=== PATIENT | female | born 1945 | race Caucasian/White ===

== ENCOUNTER → 2016-10-04 | Outpatient (CLI) | payer MEDICARE ==
[~2016-10-04] MED LIST: ADVAIR 100-501 EACH INH; ALFALFA250 MG PO; ARICEPT10 MG PO; ASCORBIC ACID500 MG PO; ASPIRIN (CHILDR81 MG PO; AUGMENTIN875 MG PO; B COMPLETE1 EACH PO; BENGAY/ICY HOT/30 GM TOP; CAPSAICIN42.5 GM TOP; CARAFATE1 GM PO; CEPACOL SORE T1 EAC1 PO; CHOLESTEROL REDUCTIO PO; COLACE100 MG PO; CORDARONE,PACE200 MG PO; COZAAR100 MG PO; DELTASONE5 MG PO; DULCOLAX10 MG R; ECOTRIN325 MG PO; FERGON325 M1 PO; FISH OIL 1,2001 EAC1 PO; GARLIC1 EAC1 PO; GLUCOPHAGE850 MG PO; IPRAT-ALBUT 0.5-3 ML INH; IRON 100-VITAM1 EACH PO; JOINT HEALTH T1 EACH PO; K-TAB ER20 MEQ PO; KEFLEX500 MG PO; LANTUS (IN100 UNIT/M SUB-Q; LEVAQUIN 750 M750 MG PO; LEVOTHROID(SY175 MCG PO; LIPITOR40 MG PO; LISINOPRIL-HCT1 EAC1 PO; LOPRESSOR25 MG PO; MAALOX LIQ UNIT30 ML PO; MILK OF MA400 MG/5 M PO; MIRAPEX0.25 MG PO; NAMENDA XR28 MG PO; NEURONTIN300 MG PO; NITROGLYCERIN0.4 MG SL; NORCO 5-325 MG1 TAB PO; NOVOLOG100 UNIT/M; NUTRIFERON PO; NYSTATIN1 EAC1 TOP; OSTEO MATRIX PO; PLAVIX75 MG PO; PROBIOTIC1 EAC1 PO; TOPROL XL25 MG PO; TYLENOL325 MG PO; ULTRAM50 MG PO; VENOFER100 MG/5 M IV; VITAMIN B-1000 MCG/M SUB-Q; VITAMIN D1000 UNIT PO; VITAMIN E400 UNI2 PO; VITAMIN K100 MCG PO; XARELTO15 MG PO; ZINC COMPLEX PO; ZYLOPRIM100 MG PO; [UNRECOGNIZED DRUG - OTHER] PO; [UNRECOGNIZED DRUG - REMARK] PO
== END | disposition disaster alternative care site (69) ==
LOC: GRAD 12:18
DX: R20.0 Anesthesia of skin (principal); I63.9 Cerebral infarction, unspecified

== ENCOUNTER → 2016-10-09 | Day surgery (SDC) | payer MEDICARE ==
[~2016-10-09] VITALS: Ht 167.6 cm; Wt 102.3 kg
--- NOTE | ~2016-10-09 | ECHO ---
Transesophageal Echocardiography Report ([facility]) Demographics Patient Name GRAEME DIAZ Date of Study 10/09/2016 Patient Number [id number] Visit Number [id number] Date of 1945 Room Number Gender Female Number Age 71 year(s) Referring Alecia Nicolas Teacher [employer] Liset Bullock Physician RDCS, RVT Physician Interpreting Alecia Nicolas Tax Attorney Physician MD Supervising Ordering Alecia Nicolas MD/MLP Physician MD Nurse Stress [employer] Fusion Developer Conclusions Summary Normal LV and RV size and systolic function. Moderate degenerative changes of the MV/AV. There is an echogenic mass attached to the anterior leaflet of the mitral valve, it is < 1 cm in size. Mild MR. Moderate to severe with severe calcific and degenerative changes. There is Grade 2 plaque seen in the ascending aorta . No mobile components noted. No JEANIE thrombus. Normal biatrial sizes. PV and TV are grossly normal. IAS is intact and there is no evidence of PFO or shunt by color/bubble study. Procedure Type of Study [facility] procedure:Color Doppler, Contrast study. 3D Imaging, live during the procedure [facility] Procedure Date Date: 10/09/2016 Start: 12:54 PM Study Location: Inpatient Portable Technical Quality: Adequate visualization Indications:CVA. Appropriate Use Criteria: 9 Patient Status: Routine Contrast Medium: Bubble Study. HR: 78 bpm BP: 173/72 mmHg O2 Saturation: 96 % [facility] Performed By: the attending and the crossing flagman Type of Anesthesia: Moderate sedation Allergies - Sulfa. M-Mode/2D Measurements AO Root Dimension: 2.14 cm LVOT: 2.05 cm Findings Aortic Valve Aortic valve area is 0.66 cm2 by 3D planimetry. Miscellaneous The patient was brought to the [facility] lab in the fasting state after informed consent was obtained in the written and verbal format. Bite block was placed by me. Once adequate anesthesia was obtained with anesthesia guidance with propofol sedation the [facility] probe was placed by me down into the stomach. It was pulled back slightly after a few views were obtained in the transgastric level to the transesophageal position where the majority of the case was carried out. At the end of the case the probe was rotated and withdrawn. Patient tolerated the procedure well. Contractility Score LV regional wall motion:(0-Non visualized 1-Normal 2-Hypokinesis 3-Akinesis 4-Dyskinesis 5-Aneurysm) Signature dtt: CHANEL MURO dtd: 10/09/16 1254 Physician Self Edit
== END | disposition disaster alternative care site (69) ==
LOC: GOPD 10-06
DX: I35.0 Nonrheumatic aortic (valve) stenosis (principal); I34.0 Nonrheumatic mitral (valve) insufficiency; I10 Essential (primary) hypertension; E11.9 Type 2 diabetes mellitus without complications; D64.9 Anemia, unspecified; R60.9 Edema, unspecified; Z87.891 Personal history of nicotine dependence; Z85.038 Personal history of other malignant neoplasm of large intestine; Z85.828 Personal history of other malignant neoplasm of skin; Z79.82 Long term (current) use of aspirin; Z79.899 Other long term (current) drug therapy; Z88.2 Allergy status to sulfonamides
CPT/HCPCS: J2001; J7030

== ENCOUNTER → 2016-11-16 | Outpatient (CLI) | payer MEDICARE ==
[2016-11-16 17:10] LABS: ALBUMIN 3.4 gm/dL (3.5-5.0); ANION GAP 13.2 (10.0-19.0); CALCIUM 9.2 mg/dL (8.5-10.5); POTASSIUM 4.2 mMol/L (3.7-5.1); TOTAL BILIRUBIN 0.5 mg/dL (0.0-1.5); TOTAL PROTEIN 8.3 g/dL (6.0-8.4)
== END ==
LOC: LNHI 16:43
PROVIDERS: Internal Medicine Interventional Cardiology
DX: R60.9 Edema, unspecified (principal); I35.0 Nonrheumatic aortic (valve) stenosis; I10 Essential (primary) hypertension; E78.5 Hyperlipidemia, unspecified